=== PATIENT | female | born 1995 | race Caucasian/White ===

== ENCOUNTER 2016-09-29 01:30 | Inpatient (IN) | payer OTHER, BC ==
[2016-09-29] MEDS ORDERED: DEXTROSE 5%-LACTATED RINGERS 1,000 ML IV ONE (03:00)
[2016-09-29] MEDS ORDERED: DEXTROSE 5%-LACTATED RINGERS 1,000 ML IV SCH ×2 (08:00)
[2016-09-29] MEDS ORDERED: TUBERCULIN PPD 5 TU/0.1ML SYRINGE (IN PATIENT USE ONLY) ID ONE (11:00)
--- NOTE | 2016-09-29 12:04 | HP ---
Past Medical History - Admission Chief Complaint: Painful contractions History of Present Illness: 20 y/o with SIUP at 40 weeks gestation arrives to L&D with complaints of painful contractions since last evening. No LOF or VB upon arrival to hospital. +FM. Patient initially 1cm dilated and after several hours of observation made progres to 2-3 cm dilated at approx 7:45 am at which time she was admitted to the labor and delivery floor. The patient has had an uncomplicated care. RH positive, HIV negative, RPR negative, Rubella Immune, HepBSag negative, GBS negative. 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 Weeks Gestation by Dates: 40.1 ...EDC by Dates: 09/28/16 ...EDC by Sono: 09/23/16 Heme/Onc: No: Anemia Infectious Disease: No: HIV, MRSA Psych: No: Anxiety, Bipolar, Depression Endocrine: No: Diabetes Mellitus - Past Surgical History Past Surgical History: Yes: None Hx Myomectomy: No Hx Transabdominal Cerclage: No - Smoking History Smoking history: Never smoked Have you smoked in the past 12 months: No - Alcohol/Substance Use Hx Alcohol Use: No History of Substance Use: reports: None - Social History Usual Living Arrangement: Yes: With Parent ADL: Independent History of Recent Travel: No Home Medications - Allergies Allergies/Adverse Reactions: Allergies Allergy/AdvReac Type Severity Reaction Status Date / Time No Known Allergies Allergy Verified 09/29/16 08:14 - Home Medications Home Medications: Ambulatory Orders Vit/Iron Fumarate/FA [ Tablet] 1 each PO DAILY 09/26/16 Review of Systems - Review of Systems Constitutional: reports: No Symptoms Eyes: reports: No Symptoms HENT: reports: No Symptoms Neck: reports: No Symptoms Cardiovascular: reports: No Symptoms Respiratory: reports: No Symptoms Gastrointestinal: reports: No Symptoms Genitourinary: reports: Pain, Vaginal Bleeding (slight VB at this time) Musculoskeletal: reports: No Symptoms Integumentary: reports: No Symptoms Neurological: reports: No Symptoms Endocrine: reports: No Symptoms Hematology/Lymphatic: reports: No Symptoms Psychiatric: reports: No Symptoms Physical Exam - Maternity Vital Signs: Vital Signs Temperature 98.2 F 09/29/16 10:00 Pulse Rate 77 09/29/16 11:00 Respiratory Rate 20 09/29/16 11:00 Blood Pressure 104/58 09/29/16 11:00 O2 Sat by Pulse Oximetry (%) Constitutional: Yes: Well Nourished, No Distress, Calm Eyes: Yes: Conjunctiva Clear, EOM Intact HENT: Yes: Atraumatic, Normocephalic Neck: Yes: Trachea Midline Cardiovascular: Yes: Regular Rate and Rhythm Lungs: Clear to auscultation - Abdominal Exam/OB Fundal Height: 39 Number of Fetuses: Single Presentation: Vertex Contractions: Yes Regularity: Regular Intensity: Mod/Strong Heart Rate (range): 130 Category: I Accelerations: Uniform Decelerations: Late (3 late decelerations noted since 0130 am, non recurrent and resolve with position changes) - Vaginal Exam/OB Vaginal Bleediing: Light Dilatation (cm): 3 Effacement (%): 80 Amniotic Membrane Status: Intact Presentation: Vertex/Position Station: -1 - Physical Exam Psychiatric: Yes: Alert, Oriented Hemorrhage Risk Assessment - Risk Factors Medium Risk Factors: Yes: None High Risk Factors: Yes: None Risk Score: 1 Risk Level: Medium Risk Problem List - Problems (1) Term Code(s): Z34.80 - ENCOUNTER FOR SUPRVSN OF NORMAL , UNSP TRIMESTER (2) Irregular contractions Code(s): O62.2 - OTHER UTERINE INERTIA (3) Active labor at term Code(s): [id number] - Assessment/Plan 20 y/o with SIUP at 40 weeks in labor - AFVSS - FHTs overall category 1, has had 3 late decelerations since admission, nonrecurrent and recover with position change. Moderate variability and accelerations noted - labor - for expectant management - pt making cervical change, if contractions space, to consider pitocin. Analgesia/Epidural prn. - GBS negative
[2016-09-29] MEDS ORDERED: BUTORPHANOL TARTRATE 1 MG/ML VIAL IVPB ONE (12:11)
[2016-09-29] MEDS ORDERED: PROMETHAZINE HCL 25 MG/1 ML VIAL IVPUSH ONE (12:11)
[2016-09-29 12:51] LABS: BASOPHIL 0.3 % (0-2.0); EOSINOPHIL 0.1 % (0-4.5); MCH 30.8 pg (25.7-33.7); MCHC 34.3 g/dl (32.0-36.0); MEAN CELL VOLUME 89.7 fl (80-96); MEAN PLT VOLUME 8.2 fl (7.5-11.1); NEUTROPHILS 83.7 % (42.8-82.8); PLATELET COUNT 187 K/MM3 (134-434); RDW 14.3 % (11.6-15.6)
[2016-09-29 13:13] LABS: INR 0.99 (0.82-1.09); PROTHROMBIN TIME (PATIENT) 10.9 SEC (9.98-11.88)
[2016-09-29 13:14] LABS: CALCIUM 8.5 mg/dL (8.5-10.1); COCKROFT - GAULT 137.003; CREATININE 0.6 mg/dL (0.55-1.02)
[2016-09-29 13:16] LABS: ACTIVATED PTT 30.6 SECONDS (26.9-34.4)
--- NOTE | 2016-09-29 19:33 | PN ---
Ante-Partal Exam - Subjective Subjective: Pt s/p stadol and phenergan at 230 pm pt tolerating contractions. Vital Signs: Vital Signs Temperature 98.9 F 09/29/16 18:00 Pulse Rate 68 09/29/16 19:00 Respiratory Rate 18 09/29/16 19:00 Blood Pressure 114/61 09/29/16 19:00 O2 Sat by Pulse Oximetry (%) Bleeding: No Headache: No Visual changes: No Right upper quadrant pain: No Pain (scale 1-10): 5 - Contractions Contractions: Yes Regularity: Regular Intensity: Moderate Monitor Mode: External - Exam during Labor Heart Rate: 130 Variability: Moderate Monitor Accelerations: Present Monitor Decelerations: None Exam: Vaginal Dilatation (cm): 4.5 Effacement (%): 90 Presentation: Vertex Station: -1 - Assessment/Plan Assessment/Plan: 20 y/o With a SIUP at 40 weeks in labor FHTs cat 1 labor, for expectant management, epidural PRN gbs negative anticipate
[2016-09-29] MEDS ORDERED: BUTORPHANOL TARTRATE 1 MG/ML VIAL IM PRN (21:58)
[2016-09-29] MEDS ORDERED: PROMETHAZINE HCL 25 MG/1 ML VIAL IVPB PRN (21:59)
[2016-09-29] MEDS: ELECTROLYTE-148 SOLN 1,000 ML IV SCH (23:25)
[2016-09-30] MEDS: FENTANYL/BUPIVACAINE/NS/PF - PCEA - 50 ML DISP.SYRIN EP SCH (00:10)
--- NOTE | 2016-09-30 09:38 | PN ---
Ante-Partal Exam - Subjective Subjective: Pt contractions no rom Vital Signs: Vital Signs Temperature 97.8 F 09/30/16 08:00 Pulse Rate 60 09/30/16 07:30 Respiratory Rate 18 09/30/16 07:30 Blood Pressure 105/70 09/30/16 07:30 O2 Sat by Pulse Oximetry (%) 100 09/30/16 07:30 Bleeding: No Headache: No Visual changes: No Right upper quadrant pain: No - Contractions Contractions: Yes Regularity: Irregular Intensity: Moderate - Exam during Labor Heart Rate: 140 Variability: Moderate Heart Rate Location: [facility] Category: I Monitor Accelerations: Present Monitor Decelerations: None Exam: Vaginal (molding) Dilatation (cm): 4 Effacement (%): 80 Amniotic Membrane Status: Intact Presentation: Vertex Station: 0 - Intrapartum Hemorrhage Risk Risk Score: 0 Risk Level: Low Risk - Assessment/Plan Assessment/Plan: Failure to progress pt desires to continue labor progress will reevaluate Plan will prob need CS if no progress
[2016-09-30] MEDS: ELECTROLYTE-148 SOLN 1,000 ML IV SCH ×2 (10:00→17:45)
--- NOTE | 2016-09-30 20:46 | PN ---
Ante-Partal Exam - Subjective Subjective: Pt with c/o pressure Vital Signs: Vital Signs Temperature 98.8 F 09/30/16 18:00 Pulse Rate 68 09/30/16 18:55 Respiratory Rate 18 09/30/16 18:55 Blood Pressure 94/65 09/30/16 18:55 O2 Sat by Pulse Oximetry (%) 98 09/30/16 18:55 Bleeding: No Headache: No Visual changes: No Right upper quadrant pain: No - Contractions Contractions: Yes Regularity: Regular Intensity: Moderate Monitor Mode: External - Exam during Labor Heart Rate: 140 Variability: Moderate Category: I Monitor Accelerations: Present Monitor Decelerations: None Exam: Vaginal Dilatation (cm): 8cm Effacement (%): 80 Amniotic Membrane Status: Ruptured Amniotic Fluid: Meconium Stained Meconium Staining: Light Presentation: Vertex Station: +1 - Intrapartum Hemorrhage Risk Risk Score: 1 Risk Level: Medium Risk - Assessment/Plan Assessment/Plan: IUP at 39 + weeks Active Labor arom light mec Plan continue present management
--- NOTE | 2016-09-30 20:48 | PN ---
Ante-Partal Exam - Subjective Subjective: Pt feels light pushing Vital Signs: Vital Signs Temperature 98.8 F 09/30/16 18:00 Pulse Rate 68 09/30/16 18:55 Respiratory Rate 18 09/30/16 18:55 Blood Pressure 94/65 09/30/16 18:55 O2 Sat by Pulse Oximetry (%) 98 09/30/16 18:55 Bleeding: No Headache: No Visual changes: No Right upper quadrant pain: No - Contractions Contractions: Yes Regularity: Regular Intensity: Mod/Strong Monitor Mode: External - Exam during Labor Variability: Moderate Category: I Monitor Accelerations: Present Monitor Decelerations: Early Exam: Vaginal Dilatation (cm): FD Amniotic Membrane Status: Ruptured Amniotic Fluid: Meconium Stained Meconium Staining: Light Presentation: Vertex Station: +2 - Intrapartum Hemorrhage Risk Risk Score: 1 Risk Level: Medium Risk - Assessment/Plan Assessment/Plan: Active Labor 2nd stage arom - light mec Plan anticipate vaginal delivery
[2016-09-30] MEDS: OXYTOCIN 20 UNITS in 0.9% NS 1,000 ML IV SCH ×2 (20:58→23:05)
--- NOTE | 2016-09-30 21:14 | PROC ---
Obstetrical Vaccum Device - Doc. Following Use of Vaccum Device Indications for use: Bradycardia, Maternal Exhaustion Risks and Benefits Explained: Yes Consent on Chart: Yes Dilation (0-10): 10 Station: 2 Molding: Yes Position: OA Caput: No Proper placement of cup confirmed: Yes Number of pulls: 1 Number of pop-offs: 0 Duration of time cup on head (min): 1 Maximum pressure attained: 40 Reduction of pressure between contractions: Yes Appearance of head on delivery: Molding Deputy Administrator present during vacuum extraction: No Deputy Administrator & nursery staff notified of vacuum extraction: Yes
[2016-09-30] MEDS ORDERED: BISACODYL 10 MG SUPP.RECT RC PRN (21:16)
[2016-09-30] MEDS ORDERED: METHYLERGONOVINE MALEATE 0.2 MG/1 ML AMP IM PRN (21:16)
--- NOTE | 2016-09-30 21:16 | PN ---
Delivery - Delivery Vaginal Delivery: Vacuum Assist Type of Anesthesia: Epidural Episiotomy/Laceration: Vaginal Extension/lac, 2nd degree EBL (cc): 350 Delivery, Single - Stages of Labor Placenta: Yes: Spontaneous - Condition of Tire Tester/Name Plate Stamping Machine Operator Present: No Gender: Male Position: OA - Feeding Plan Initial Plan: Elected not to breastfeed exclusively throughout hospitalization Benefits of Exclusively reinforced: Yes
[2016-09-30 21:30] LABS: VENOUS PH 7.33 (7.32-7.42)
[2016-09-30 21:32] LABS: VENOUS BLOOD GAS HCO3 23.4 meq/L (19-25)
[2016-09-30 21:34] LABS: ARTERIAL BLOOD GAS pH 7.33 (7.35-7.45)
[2016-09-30 21:35] LABS: ARTERIAL BLD GAS O2 SATURATION 66.3 % (90-98.9); ARTERIAL BLOOD GAS BASE EXCESS -2.8 meq/l (-2-2); ARTERIAL BLOOD GAS HCO3 22.7 meq/L (22-26)
[2016-09-30 21:36] LABS: ARTERIAL BLOOD GAS PO2 31.6 mmHg (80-100)
[2016-10-01] MEDS: ACETAMINOPHEN 325 MG TABLET (FP) PO PRN ×2 (02:50→21:30)
[2016-10-01] MEDS: IBUPROFEN 600 MG TABLET (FP) PO PRN ×2 (02:52→21:30)
[2016-10-01] MEDS: BENZOCAINE 20% 57 GM BOTTLE TP PRN (02:53)
[2016-10-01] MEDS: FENTANYL/BUPIVACAINE/NS/PF - PCEA - 50 ML DISP.SYRIN EP SCH (07:18)
--- NOTE | 2016-10-01 07:27 | PN ---
Post Note - Post Date of Delivery: 09/30/16 Vital Signs: Vital Signs - 24 hr 09/30/16 09/30/16 09/30/16 07:30 07:45 08:00 Temperature 97.8 F Pulse Rate 60 60 60 Respiratory 18 18 18 Rate Blood Pressure 105/70 106/69 102/64 O2 Sat by Pulse 100 100 100 Oximetry (%) 09/30/16 09/30/16 09/30/16 08:15 08:30 08:45 Temperature Pulse Rate 62 60 60 Respiratory 18 18 18 Rate Blood Pressure 103/60 106/66 103/68 O2 Sat by Pulse 99 98 98 Oximetry (%) 09/30/16 09/30/16 09/30/16 09:00 09:15 09:30 Temperature Pulse Rate 62 60 65 Respiratory 18 18 18 Rate Blood Pressure 99/70 98/61 105/61 O2 Sat by Pulse 98 98 99 Oximetry (%) 09/30/16 09/30/16 09/30/16 09:45 10:00 10:15 Temperature Pulse Rate 60 60 62 Respiratory 18 18 18 Rate Blood Pressure 103/62 103/61 96/60 O2 Sat by Pulse 99 98 98 Oximetry (%) 09/30/16 09/30/16 09/30/16 10:20 10:30 10:45 Temperature 97.8 F Pulse Rate 60 60 Respiratory 18 18 Rate Blood Pressure 99/52 103/54 O2 Sat by Pulse 99 98 Oximetry (%) 09/30/16 09/30/16 09/30/16 11:00 11:15 11:30 Temperature Pulse Rate 70 60 60 Respiratory 18 18 18 Rate Blood Pressure 100/59 98/58 100/59 O2 Sat by Pulse 98 97 97 Oximetry (%) 09/30/16 09/30/16 09/30/16 11:45 12:00 12:15 Temperature 98.0 F Pulse Rate 60 75 70 Respiratory 18 18 18 Rate Blood Pressure 101/58 91/53 93/48 O2 Sat by Pulse 97 98 99 Oximetry (%) 09/30/16 09/30/16 09/30/16 12:30 12:45 13:00 Temperature Pulse Rate 70 70 65 Respiratory 18 18 18 Rate Blood Pressure 98/57 91/51 94/55 O2 Sat by Pulse 98 98 98 Oximetry (%) 09/30/16 09/30/16 09/30/16 13:15 13:30 13:45 Temperature Pulse Rate 65 60 65 Respiratory 18 18 18 Rate Blood Pressure 96/58 98/56 92/50 O2 Sat by Pulse 100 96 97 Oximetry (%) 09/30/16 09/30/16 09/30/16 14:00 14:15 14:30 Temperature 98.1 F Pulse Rate 75 78 70 Respiratory 18 18 18 Rate Blood Pressure 118/71 113/74 123/70 O2 Sat by Pulse 99 100 100 Oximetry (%) 09/30/16 09/30/16 09/30/16 14:45 15:00 15:15 Temperature Pulse Rate 75 75 70 Respiratory 18 18 18 Rate Blood Pressure 116/68 112/71 113/78 O2 Sat by Pulse 99 98 97 Oximetry (%) 09/30/16 09/30/16 09/30/16 15:30 15:45 16:00 Temperature 98.7 F Pulse Rate 70 70 72 Respiratory 18 18 18 Rate Blood Pressure 109/62 108/70 107/64 O2 Sat by Pulse 97 96 96 Oximetry (%) 09/30/16 09/30/16 09/30/16 16:15 16:30 16:45 Temperature Pulse Rate 75 65 60 Respiratory 18 18 18 Rate Blood Pressure 115/70 105/51 103/59 O2 Sat by Pulse 97 97 98 Oximetry (%) 09/30/16 09/30/16 09/30/16 17:00 17:15 17:30 Temperature Pulse Rate 65 60 70 Respiratory 18 18 18 Rate Blood Pressure 102/57 103/58 110/60 O2 Sat by Pulse 98 97 97 Oximetry (%) 09/30/16 09/30/16 09/30/16 17:45 18:00 18:15 Temperature 98.8 F Pulse Rate 60 60 60 Respiratory 18 18 18 Rate Blood Pressure 90/48 91/52 91/50 O2 Sat by Pulse 98 96 98 Oximetry (%) 09/30/16 09/30/16 09/30/16 18:30 18:45 18:55 Temperature Pulse Rate 68 60 68 Respiratory 18 18 18 Rate Blood Pressure 98/47 93/54 94/65 O2 Sat by Pulse 96 98 98 Oximetry (%) 09/30/16 09/30/16 09/30/16 19:10 19:25 19:40 Temperature Pulse Rate 64 69 72 Respiratory 18 18 18 Rate Blood Pressure 108/68 92/60 108/69 O2 Sat by Pulse 98 98 98 Oximetry (%) 09/30/16 09/30/16 09/30/16 19:55 20:10 20:25 Temperature Pulse Rate 71 85 71 Respiratory 18 18 18 Rate Blood Pressure 114/67 92/31 102/67 O2 Sat by Pulse 99 98 98 Oximetry (%) 09/30/16 09/30/16 09/30/16 21:15 21:30 21:45 Temperature 98.1 F Pulse Rate 84 72 75 Respiratory 20 20 20 Rate Blood Pressure 115/68 113/68 117/66 O2 Sat by Pulse 100 Oximetry (%) 09/30/16 09/30/16 10/01/16 22:00 23:56 02:00 Temperature 99.2 F 99.5 F Pulse Rate 78 59 L 69 Respiratory 20 18 18 Rate Blood Pressure 108/68 117/64 105/59 O2 Sat by Pulse Oximetry (%) 10/01/16 06:00 Temperature 98.1 F Pulse Rate 70 Respiratory 18 Rate Blood Pressure 111/73 O2 Sat by Pulse Oximetry (%) Labs: Laboratory Results - last 24 hr 09/30/16 09/30/16 21:18 21:20 Puncture Site Md puncture ABG pH 7.33 L ABG pCO2 at Pt Temp 44.3 ABG pO2 at Pt Temp 31.6 L* ABG HCO3 22.7 ABG O2 Sat (Measured) 66.3 L* ABG O2 Content 13.4 L ABG Base Excess -2.8 L Iván Test Not applicable VBG pH 7.33 POC VBG pCO2 45.1 POC VBG pO2 27.3 L Mixed VBG HCO3 23.4 Oxygen Flow Rate Y - Subjective Subjective: No Complaints - Objective Afebrile: Yes Breast: Not engorged Abdomen: Soft, Non-tender Uterus: Fundus firm, Non-tender Vagina: Scant lochia Extremities: Non-tender - Assessment/Plan (1) (normal spontaneous vaginal delivery) Assessment: S/P Normal Plan: Routine Care
[2016-10-01 07:36] LABS: BASOPHIL 0.2 % (0-2.0); EOSINOPHIL 0.2 % (0-4.5); MCH 31.3 pg (25.7-33.7); MCHC 34.7 g/dl (32.0-36.0); MEAN CELL VOLUME 90.3 fl (80-96); MEAN PLT VOLUME 8.5 fl (7.5-11.1); NEUTROPHILS 79.6 % (42.8-82.8); PLATELET COUNT 143 K/MM3 (134-434); RDW 14.3 % (11.6-15.6); WHITE BLOOD COUNT 14.9 K/mm3 (4.0-10.0)
[2016-10-01] MEDS: WITCH HAZEL 50% (TUCKS) 40 PAD/JAR PAD TP PRN (21:31)
[2016-10-01] MEDS: BENZOCAINE 28 GM HEMORRHOIDAL OINTMENT TP PRN (21:31)
[2016-10-01] MEDS ORDERED: SENNOSIDES/DOCUSATE COMBO (SENNA PLUS) TABLET (UD) PO PRN (22:00)
[2016-10-02] MEDS: WITCH HAZEL 50% (TUCKS) 40 PAD/JAR PAD TP PRN (09:12)
[2016-10-02] MEDS: BENZOCAINE 20% 57 GM BOTTLE TP PRN (09:12)
[2016-10-02] MEDS: BENZOCAINE 28 GM HEMORRHOIDAL OINTMENT TP PRN (09:13)
[2016-10-02 10:49] VITALS: BP 104/74; PULSE 62; TEMP 97.7
== END 2016-10-02 14:30 | disposition home or self-care (01) | DRG 560 ==
LOC: JDEL 01:30 → JLDR 07:50 → J3W 09-30 23:19
PROVIDERS: ADMIT Obstetrics & Gynecology; ATTEND Obstetrics & Gynecology
PROC: 10D07Z6 Extraction of Products of Conception, Vacuum, Via Natural or Artificial Opening (ICD-10-PCS; principal; 2016-09-30)
PROC: 0KQM0ZZ Repair Perineum Muscle, Open Approach (ICD-10-PCS; 2016-09-30)
DX: O48.0 Post-term pregnancy (principal); O62.2 Other uterine inertia; O76 Abnormality in fetal heart rate and rhythm complicating labor and delivery; O75.81 Maternal exhaustion complicating labor and delivery; O70.1 Second degree perineal laceration during delivery; Z37.0 Single live birth; Z3A.40 40 weeks gestation of pregnancy
CPT/HCPCS: 36415; 36600; 59025; 59409; 80048; 82803; 85025; 85610; 85730; 86593; 86850; 86900; 86901

== ENCOUNTER 2021-04-19 03:00 | Inpatient (IN) | payer OTHER ==
[~2021-04-19 03:00] MED LIST: ELECTROLYTE-148 SOLN 1,000 ML IV SCH
[2021-04-19] MEDS ORDERED: AMPICILLIN SODIUM 2 GM VIAL ONE (03:54)
[2021-04-19] MEDS ORDERED: LIDOCAINE HCL 1% PRESERVATIVE FREE - 30ML VIAL ONE (03:55)
[2021-04-19] MEDS ORDERED: OXYTOCIN 20 UNITS in 0.9% NS 20 UNIT/1,000 ML INFUS.BAG IV ONE ×2 (03:55→05:43)
[2021-04-19] MEDS ORDERED: AMPICILLIN - 2 GM in SODIUM CHLORIDE 100 ML IVPB ONE (04:00)
[2021-04-19 04:05] LABS: BASO % 0.1 % (0-2.0); HEMATOCRIT 33.7 % (32.4-45.2); HEMOGLOBIN 11.4 GM/dL (10.7-15.3); LYMPH % 13.6 % (8-40); MCH 29.9 pg (25.7-33.7); MCHC 33.8 g/dl (32.0-36.0); MEAN CELL VOLUME 88.4 fl (80-96); MEAN PLT VOLUME 9.3 fl (7.5-11.1); MONO % 8.4 % (3.8-10.2); NEUT % 77.9 % (42.8-82.8); PLATELET COUNT 161 10^3/uL (134-434); RBC 3.81 M/mm3 (3.60-5.2); RDW 13.8 % (11.6-15.6); WHITE BLOOD COUNT 11.8 K/mm3 (4.0-10.0)
[2021-04-19 04:12] LABS: INR 0.95 (0.83-1.09); PROTHROMBIN TIME (PATIENT) 10.6 SEC (9.7-13.0)
[2021-04-19 04:15] LABS: ACTIVATED PTT 25.9 SECONDS (25.2-36.5)
[2021-04-19 04:25] LABS: CALCIUM 8.5 mg/dL (8.5-10.1)
[2021-04-19 04:26] LABS: BLOOD UREA NITROGEN 7.7 mg/dL (7-18)
[2021-04-19 04:29] LABS: CREATININE 0.6 mg/dL (0.55-1.3)
[2021-04-19] MEDS ORDERED: BENZOCAINE 28 GM HEMORRHOIDAL OINTMENT TP PRN (04:53)
[2021-04-19] MEDS ORDERED: oxyCODONE HCL 5 MG TABLET PO PRN (04:53)
[2021-04-19] MEDS ORDERED: WITCH HAZEL 50% (TUCKS) 40 PAD/JAR PAD TP PRN (04:53)
[2021-04-19] MEDS ORDERED: PROMETHAZINE HCL 25 MG/1 ML VIAL IVPUSH ONE (04:53)
[2021-04-19] MEDS ORDERED: METHYLERGONOVINE MALEATE 0.2 MG/1 ML AMP IM PRN (04:53)
[2021-04-19] MEDS ORDERED: ACETAMINOPHEN 325 MG TABLET (FP) PO PRN (04:53)
[2021-04-19] MEDS ORDERED: BISACODYL 10 MG SUPP.RECT RC PRN (04:53)
[2021-04-19] MEDS ORDERED: BENZOCAINE 20% 57 GM BOTTLE TP PRN (04:53)
[2021-04-19] MEDS ORDERED: ZOLPIDEM TARTRATE 5 MG TABLET PO PRN (04:56)
[2021-04-19] MEDS ORDERED: ELECTROLYTE-148 SOLN 1,000 ML IV SCH (05:00)
[2021-04-19] MEDS ORDERED: OXYTOCIN 20 UNITS in 0.9% NS 20 UNIT/1,000 ML INFUS.BAG IV SCH (05:00)
[2021-04-19 05:16] VITALS: BMI 25.6
[2021-04-19] MEDS ORDERED: oxyCODONE HCL 5 MG TABLET ONE (05:19)
[2021-04-19 06:20] LABS: HIV INTERPRETATION NEGATIVE (NEGATIVE)
[2021-04-19 06:55] LABS: CORD BASE EXCESS -5.6 mmol/L (0-2); CORD PCO2 44.7 mmHg (30-78); CORD pH 7.29 (7.14-7.44)
[2021-04-19 06:58] LABS: CORD BASE EXCESS -9.5 mmol/L (0-2); CORD HCO3 19.3 mmHg (20-29); CORD PCO2 54.1 mmHg (30-78); CORD pH 7.171 (7.14-7.44)
[2021-04-19] MEDS: AMPICILLIN - 1 GM in SODIUM CHLORIDE 100 ML IVPB SCH (08:17)
[2021-04-19] MEDS: IBUPROFEN 600 MG TABLET (FP) PO PRN (20:16)
[2021-04-20 07:19] LABS: BASO % 0.1 % (0-2.0); HEMATOCRIT 29.5 % (32.4-45.2); HEMOGLOBIN 9.9 GM/dL (10.7-15.3); LYMPH % 21.6 % (8-40); MCH 30.3 pg (25.7-33.7); MCHC 33.7 g/dl (32.0-36.0); MEAN CELL VOLUME 89.9 fl (80-96); MEAN PLT VOLUME 10.2 fl (7.5-11.1); MONO % 6.9 % (3.8-10.2); NEUT % 70.4 % (42.8-82.8); PLATELET COUNT 138 10^3/uL (134-434); RBC 3.28 M/mm3 (3.60-5.2); RDW 13.9 % (11.6-15.6); WHITE BLOOD COUNT 11.2 K/mm3 (4.0-10.0)
[2021-04-20 09:08] VITALS: BP 105/64; PULSE 65; TEMP 97.5
[2021-04-20] MEDS: AMPICILLIN - 1 GM in SODIUM CHLORIDE 100 ML IVPB SCH ×2 (14:00→14:01)
[2021-04-20] MEDS: IBUPROFEN 600 MG TABLET (FP) PO PRN (14:40)
[2021-04-20] MEDS ORDERED: SENNOSIDES/DOCUSATE COMBO (SENNA PLUS) TABLET (UD) PO PRN (22:00)
== END 2021-04-20 16:30 | disposition home or self-care (01) | DRG 560 ==
LOC: JLDR 03:00 → J3W 07:55
PROVIDERS: ADMIT Obstetrics & Gynecology; ATTEND Obstetrics & Gynecology
PROC: 10E0XZZ Delivery of Products of Conception, External Approach (ICD-10-PCS; principal; 2021-04-19)
PROC: 0W8NXZZ Division of Female Perineum, External Approach (ICD-10-PCS; 2021-04-19)
PROC: 0HQ9XZZ Repair Perineum Skin, External Approach (ICD-10-PCS; 2021-04-19)
DX: O70.0 First degree perineal laceration during delivery (principal); Z3A.38 38 weeks gestation of pregnancy; Z37.0 Single live birth
CPT/HCPCS: 36415; 36600; 59025; 59409; 80048; 82803; 83986-QW; 85025; 85610; 85730; 86780; 86850; 86900; 86901; 87389; C9803; U0003; U0005